=== PATIENT | male | born 1970 | race Caucasian/White ===

== ENCOUNTER 2016-04-08 14:39 | Emergency (ER) | payer OTHER ==
[~2016-04-08] VITALS: Ht 195.6 cm; Wt 190.5 kg
[~2016-04-08 14:39] MED LIST: BUSPAR5 MG PO; LORTAB 500 MG-11 TAB PO; MELOXICAM15 MG PO; TYLENOL ES500 MG PO; VITAMIN C1000 M1 PO
--- NOTE | 2016-04-08 14:53 | Emergency Room Report ---
History of Present Illness Time Seen by 145Ernesto Presenting Problem in Triage Pt arrived:Walked Presenting Problem:HAS BEEN EXPERIENCING INTERMITTENT CP FOR LAST WEEK; SEEN BY PCP [facility] C[facility]. SENT UP HERE Onset of symptoms date/time:/ or onset unknown for:MEDICAL HX UNKNOWN Treatment Prior to Arrival: NA [facility] Provided by:PHYSICIAN Sepsis Risk Assessment: Temp: 98.3 B/P: 132/80 MAP: 97 Pulse: 74 Resp: 18 Recent fever? N Clinical Suspician of Infection? N Mental Status: 1 - Regular (Normal Baseline) Sepsis Risk:Low Sepsis Risk Have you (or family members/close friends) recently traveled outside the [place]? N If Yes, where/when: Have you had exposure to infectious disease within the past month? TB? Other? Specify: Comment INTERMITTENTChest pain for the past week, seen by PCP and sent to the ED. Had a Heart Cath about 10 to 11 years ago and told he had small coronary arteries that could not be stented. Sent home with Isordil but could not tolerate it nor regular NTG as it bottoms his pressure out. He feels like he has had sinus congestion for the past month untreated, but describes a squeezing pain across chest and shoulders but no sweats. Feels tired and worn out for the past week Cardiac Chest Pain Chest pain indicative of cardiac Yes ALLERGIES Coded Allergies: nitroglycerin (Mild, 04/08/16) INTOLERANCE Home Medications Reported Medications Buspirone Hcl (Buspirone HCl) 2.5 MG PO BID Ascorbic Acid (Vitamin C) 1,000 MG PO DAILY Acetaminophen (Tylenol XS 500MG) 1,000 MG PO BIDP Meloxicam (Meloxicam 15MG) 10 MG PO DAILY HYDROCODONE/ACETAMINOPHEN (Hydrocodon-Acetaminophn 10-325) 1 TAB PO PRN History Medical History General Angina: No [place]: No Hypertension? Yes Hyperlipidemia? No CHF? No COPD? No Asthma? No Hernia? No CVA? No Seizures? No Diabetes? No UTI? No Stones? Yes GB Disease: No Hepatitis? No Cataracts? No Glaucoma? No MRSA? No TB? No Cancer? No Immunization Hx Ped.Immunizations UTD Yes DT/Tetanus 5-10 YRS Flu NEVER Pneumonia NEVER Surgical Hx Previous Surgery?N Family History Family Hx Diabetes Yes CAD Yes Hypertension Yes Hyperlipidemia Yes Cancer Yes TB No Social History Smoking Hx Smoker: Never Smoker Tobacco: Yes Type Chew Are you/the child exposed to second-hand smoke: No Alcohol Alcohol: No Review of Systems All Other Systems Reviewed and Negative Constitutional see HPI ENT see HPI. Respiratory see HPI Cardiovascular see HPI Physical Exam Vital Signs Vital Signs Date Time Temp Pulse Resp B/P Pulse O2 O2 Flow FiO2 Ox Delivery Rate 04/08 1601 70 18 115/71 91 04/08 1510 74 18 131/74 95 04/08 1445 98.3 74 18 132/80 97 General Appearance normal appearance, WD/WN, no apparent distress, obese Respiratory Status No: respiratory distress. Lung Sounds bilateral: normal breath sounds. Cardiovascular normal exam, regular rate/rhythm Neurologic alert, superintendent transmission II-XII nml as tested, normal exam Medical Decision Making LABS/Meds/Orders Pt receiving controlled substance in ED? No Results/Orders Laboratory Tests 04/08/16 1615: Influenza Type A Ag NOT DETECTED, Influenza Type B Ag NOT DETECTED 04/08/16 1450: D-Dimer 156 04/08/16 1450: Sodium 143, Potassium 4.1, Chloride 106, Carbon Dioxide 32, BUN 12, Creatinine 1.0, Estimated Creat Clear 254 H, Estimated GFR (MDRD) 81, Glucose 74, Calcium 9.1, Total Bilirubin 0.5, AST 29, ALT 65, Alkaline Phosphatase 74, Creatine Kinase 146, CK-MB (CK-2) Rel Index 1.0, CK and CKMB Interp 1.4, Troponin I < 0.02, Total Protein 7.7, Albumin 3.6, Globulin 4.1 H, Albumin/Globulin Ratio 0.9 L, PT 10.8, INR 1.01, APTT 27.0, WBC 9.0, RBC 5.22, Hgb 14.9, Hct 44.8, MCV 85.8, RDW 15.2, Plt Count 300, Gran % 66.5, Gran # 6.0, Lymphocytes % 27.6, Monocytes % 5.9, Lymphocytes # 2.5, Monocytes # 0.5, PUBS MCHC 33.3, MCH 28.5 Current Medication Orders Sig/Ranulfo Start time Last Medication Dose Route Stop Time Status Admin Levofloxacin/Dextrose 100 ML .STK-MED ONE 04/08 1625 DC IV Levofloxacin/Dextrose 100 ML ONCE ONE 04/08 1615 DCr 04/08 IV 04/08 1714 1626 Aspirin 324 MG ONCE ONE 04/08 1500 DC 04/08 PO 04/08 1501 1452 Sodium Chloride 10 ML PRN PRN 04/08 1500 AC IV 04/09 1448 Aspirin 0 .STK-MED ONE 04/08 1452 DC .ROUTE Orders Procedure Date/time Status INFLUENZA A&B ANTIGENS 04/08 1615 Complete PROTIME/PARTIAL PROTIME 04/08 1516 Complete D-DIMER 04/08 1516 Complete ELECTROCARDIOGRAM REQUEST 04/08 1449 Active IV SALINE LOCK 04/08 1449 Active CBC WITH AUTO DIFF 04/08 1449 Complete CARDIAC ENZYMES 04/08 1449 Complete CHEM 12 PROFILE 04/08 1449 Complete 12 LEAD EKG-GABRIELLE (INITIAL) 04/08 UNK Active CM/EKG CM/EKG EKG rate (74), NSR, LVH by voltage XRAY/CT/US XRAY/CT/US XRAY chest XR interpretation by discussed w/radiologist Xray Results RUL infiltrate Departure Departure Time of Disposition 1711 Disposition DC Home or Self Care(routine) Clinical Impression Primary Impression: Pneumonia Qualifiers: Pneumonia type: due to unspecified organism Laterality: right Lung location: upper lobe of lung Qualified Code: J18.9 - Pneumonia, unspecified organism Condition STABLE Referrals Davion CASTANEDA,Steve Resendiz (Family): 6 Days-Call Office Patient Instructions DI for Atypical Pneumonia, Pneumonia-Adult Additional Instructions Use medicines as directed and followup with PCP in 5 to 7 days or return to the ED with any worsening symptoms Discharge Counseling Counseled pt/family regarding diagnosis, test results, medications/RX, home care, follow up needs Prescriptions Current Visit Scripts Levofloxacin (Levaquin 500MG) 500 MG PO DAILY #10 TAB Albuterol (Albuterol-Hfa Inhaler) 2 PUFF IH QID #1 INH ED Critical Care Critical Care No If Critical Care minutes are documented, the time involved in the performance of seperately reportable procedures was not counted toward critical care time documented. I directly delivered medical care to this critically ill and/or injured patient. Timely evaluation and treatment was necessary to address the significant organ system(s) dysfunction present in this patient. at 1718
--- NOTE | 2016-04-08 15:11 | RADIOLOGY REPORT PS360 ---
CHEST(2 VIEWS-NOT PORTABLE) HISTORY: Chest pain CP ORDERING PHYSICIAN: PATIENT AGE: 46 years COMPARISON: 11/26/2008 FINDINGS: The cardiomediastinal silhouette and pulmonary vascularity are within normal limits. Is coarsening of the bronchovascular markings bilaterally with patchy density noted in the suprahilar region on the right filtrate/pneumonia. No effusions.. No acute bony abnormalities. IMPRESSION: Right suprahilar infiltrate with chronic peribronchial inflammatory changes
[2016-04-08 15:23] LABS: HEMOGLOBIN 14.9 g/dL (14.1-18.0)
[2016-04-08 15:24] LABS: LYMPH # 2.5 K/mm3 (0.7-4.5); LYMPH % 27.6 % (10-50)
[2016-04-08 15:42] LABS: BUN 12 mg/dL (7-18)
[2016-04-08 15:45] LABS: GFR (ESTIMATED) 81 ML/MIN (>60)
[2016-04-08] MEDS ORDERED: ALBUTEROL-200 PUFFS/ IH (17:17)
[2016-04-08] MEDS ORDERED: LEVAQUIN500 MG PO (17:17)
[2016-04-08 17:22] VITALS: BP 115/71
== END 2016-04-08 17:24 | disposition home or self-care (01) ==
LOC: ER 14:39
PROVIDERS: General Practice
DX: J18.9 Pneumonia, unspecified organism (principal)